=== PATIENT | female | born 1995 | race Caucasian/White ===

== ENCOUNTER 2023-04-14 01:54 | Outpatient (CLI) | payer MEDICAID, SELFPAY ==
[2023-04-14 15:48] LABS: Panorama Kit Sent via Fed Ex
[2023-04-14 15:54] LABS: Abs Immature Grans 0.05 10^3/uL (0.0-0.06); Absolute Basophil Count 0.04 10^3/uL (0.0-0.2); Absolute Eosinophil Count 0.39 10^3/uL (0.0-0.7); Absolute Monocyte Count 0.58 10^3/uL (0.1-0.8); Absolute Neutrophil Count 9.22 10^3/uL (1.2-6.7); Basophils % 0.3; Eosinophils % 3.2; HCT 33.8 % (36.0-46.0); HGB 11.4 g/dL (11.2-15.7); Immature Grans % 0.4; Lymphocytes % 15.6; MCH 29.2 pg (27.0-33.0); MCHC 33.7 % (32.0-36.0); MCV 87 fL (80-95); MPV 12.1 fL (8.0-11.0); Monocytes % 4.8; Neutrophils % 75.7; Platelet Count 203 10^3/uL (130-400); RDW-SD 41.1 fL; WBC 12.18 10^3/uL (4.4-10.8)
[2023-04-14 16:03] LABS: Glucose,1 Hr (Glucola) 133 mg/dL (80-140)
[2023-04-14 16:09] LABS: ALT 19 U/L (14-59); AST 9 U/L (15-37); Albumin 3.1 g/dL (3.4-5.0); Alkaline Phosphatase 55 U/L (46-116); Anion Gap 10.7 mmol/L (3-11); BUN 9 mg/dL (7-18); Bilirubin, Total 0.2 mg/dL (0.2-1.0); CO2 23.3 mmol/L (21.0-32.0); CREATININE 0.8 mg/dL (0.55-1.02); Calcium 8.9 mg/dL (8.5-10.1); Chloride 104 mmol/L (98-107); Glucose 134 mg/dL (74-106); Potassium 3.8 mmol/L (3.5-5.1); Sodium 138 mmol/L (136-145); Total Protein 7.1 g/dL (6.4-8.2)
[2023-04-17 10:41] LABS: Hepatitis B Surface Ag Negative (Negative)
[2023-04-17 10:46] LABS: Varicella IgG Antibody Positive (See Note)
[2023-04-17 10:56] LABS: HIV-1/2 Ag & Ab Screen Negative (Negative)
[2023-04-17 11:07] LABS: Hepatitis C Ab w Rflx HCV PCR Negative (Negative)
[2023-04-17 11:09] LABS: Rubella IgG Ab (UVM) Positive (See Note)
[2023-04-18 21:11] LABS: Syphilis IgG w/Reflex Nonreactive (Nonreactive)
[2023-04-26 17:19] LABS: Result Summary NEGATIVE; Specimen WB Whole Blood
== END 2023-04-14 01:55 | disposition home or self-care (01) ==
LOC: LBO 01:54
PROVIDERS: Visit Provider Advanced Practice Midwife
DX: O09.291 Supervision of pregnancy with other poor reproductive or obstetric history, first trimester (principal); Z3A.12 12 weeks gestation of pregnancy
CPT/HCPCS: 36415; 80053; 81220; 81222; 82950; 86787; 86803; 86850; 86900; 86901; 87340; 87389; 85025; 86762; 86780

== ENCOUNTER 2023-04-14 16:16 | Outpatient (REF) | payer MEDICAID, SELFPAY ==
--- NOTE | 2023-04-14 13:45 | PAPFT_PTH ---
PATIENT: Edith Porter LOC: [facility] U#:[id number] AGE/SX: 27/F ROOM: RE04/14/[address]: Tamiko Kapadia CNM : 1995 BED: DIS: 04/14/2023 SPEC #: [id number] RECD: 04/14/23 17:28 STATUS: KORINA RETheodora #: [id number] MANDI: 04/14/23 13:[address]: Tamiko Kapadia DEPT: [facility] Cytology RECD BY: Marnie Cadet Tissues: 1 - CX/ENDOCX FOR PAP SMEARS Procedures: PAP THIN PREP/UVM Screening Comments: [id number] (CHLAMYDIA/GC)
[2023-04-14 18:14] LABS: COMMENT (LAB VIEW ONLY) 15.85 mg/dL
[2023-04-14 18:49] LABS: PROTEIN < 6.0 mg/dL
[2023-04-14 19:07] LABS: *AMPHETAMINES SCREEN URINE Negative (Negative); *BARBITURATES SCREEN URINE Negative (Negative); *BENZODIAZEPINES SCREEN URINE Negative (Negative); Cannabinoids THC Negative (Negative); Cocaine Screen,Urine Negative (Negative); METHADONE URINE SCREEN Negative (Negative); OPIATES URINE SCREEN Negative (Negative)
[2023-04-14 19:08] LABS: Tricyclic Antidepressants Negative (Negative)
[2023-04-17 14:00] LABS: Chlamydia Result Negative (Negative); GC Result Negative (Negative)
[2023-04-24 19:14] LABS: Buprenorphine Negative ng/mL (Cutoff: 5.0); Norbuprenorphine Negative ng/mL (Cutoff: 2.5)
== END 2023-04-14 16:17 | disposition home or self-care (01) ==
LOC: LBN 16:16
PROVIDERS: Visit Provider Advanced Practice Midwife
DX: O09.291 Supervision of pregnancy with other poor reproductive or obstetric history, first trimester (principal); Z86.32 Personal history of gestational diabetes; Z12.4 Encounter for screening for malignant neoplasm of cervix; Z3A.12 12 weeks gestation of pregnancy; Z11.3 Encounter for screening for infections with a predominantly sexual mode of transmission; R87.610 Atypical squamous cells of undetermined significance on cytologic smear of cervix (ASC-US)
CPT/HCPCS: 80307; 80348; 87491; 87591; 88142; 82565; 84156; 87086

== ENCOUNTER 2023-06-07 01:11 | Outpatient (CLI) | payer MEDICAID, SELFPAY ==
--- NOTE | 2023-06-07 07:45 | DI.US_ITS ---
Exam(s) US OB 2-3 TRIMESTER EXAM: US OB 2-3 TRIMESTER CLINICAL HISTORY: anatomy,Z34.90. TECHNIQUE: Transabdominal obstetrical ultrasound performed. COMPARISON: US POCUS EXAM from 03/17/2023 FINDINGS: Number of fetuses: One. position: Vertex. Placental grade: 1 Placental location: Anterior no evidence of previa. Cervix: Normal. BIOMETRIC DATA: BPD: 46mm = 19+ 6 weeks HC: 175mm = 20+ 0 weeks AC: 152mm = 20+ 3 weeks FL: 35mm = 20+ 1 weeks Cisterna Magna: 4 mm Cerebellum: 2.0 cm EFW: 366 grms 64% Composite Age: 20+ 3 weeks EDC by US: 22 October 2023 Heart Rate: 130BPM Amniotic fluid : Amount of fluid is within normal limits. ANATOMICAL SURVEY: Four-chambered heart: Unremarkable. LVOT: Unremarkable. RVOT: Unremarkable. Left-sided stomach: Unremarkable. urinary bladder: Unremarkable. Bilateral kidneys: Unremarkable. Three-vessel cord: Unremarkable. Cord insertion: Unremarkable. Posterior fossa:Unremarkable. ventricles: Unremarkable. nose: Unremarkable. lips: Unremarkable. palate: Unremarkable. spine: Unremarkable. Two arms and two legs: Unremarkable. IMPRESSION: 1. Single live intrauterine gestation as above with estimated gestational age of 20 weeks 3 days. 2. Normal anatomic survey. DATA REPOSITORY:
== END 2023-06-07 01:31 ==
LOC: DI 01:11
PROVIDERS: Visit Provider Advanced Practice Midwife
DX: Z34.93 Encounter for supervision of normal pregnancy, unspecified, third trimester (principal)
CPT/HCPCS: 76805

== ENCOUNTER 2023-06-07 14:31 | Outpatient (REF) | payer MEDICAID, SELFPAY | END 2023-06-07 14:32 | disposition home or self-care (01) | LOC: LBN 14:31 | PROVIDERS: Visit Provider Obstetrics & Gynecology | DX: R10.11 Right upper quadrant pain (principal); R82.998 Other abnormal findings in urine | CPT/HCPCS: 87086 ==

== ENCOUNTER → 2023-06-09 00:51 | Outpatient (CLI) | payer MEDICAID, SELFPAY ==
--- NOTE | 2023-06-09 08:30 | DI.US_ITS ---
Exam(s) US RENAL EXAM: US RENAL CLINICAL HISTORY: right flank pain in ,R10.9. TECHNIQUE: Chilel scale, color and spectral Doppler were used. COMPARISON: No exams were available for comparison FINDINGS: Renal size in cm: Right: 10.4 x 6.1 x 5 5 left: 10.9 x 4.6 x 4.8 Echogenicity: Normal Hydronephrosis: No Cyst or mass: No Nephrolithiasis: No Bladder:Normal. Both ureteral jets visualized. Prevoid vol:377 cc Postvoid vol: 0 IMPRESSION: Renal ultrasound. DATA REPOSITORY:
== END ==
PROVIDERS: Visit Provider Advanced Practice Midwife
DX: R10.30 Lower abdominal pain, unspecified (principal); Z34.92 Encounter for supervision of normal pregnancy, unspecified, second trimester
CPT/HCPCS: 76770

== ENCOUNTER 2023-08-03 04:55 | Outpatient (CLI) | payer MEDICAID, SELFPAY ==
[2023-08-03 11:19] LABS: HCT 31.4 % (36.0-46.0); HGB 10.6 g/dL (11.2-15.7); MCH 29.1 pg (27.0-33.0); MCHC 33.8 % (32.0-36.0); MCV 86 fL (80-95); MPV 11.3 fL (8.0-11.0); Platelet Count 230 10^3/uL (130-400); RBC 3.64 10^6/uL (3.93-5.22); RDW 13.1 % (11.7-14.6); RDW-SD 40.7 fL; WBC 13.83 10^3/uL (4.4-10.8)
[2023-08-03 11:27] LABS: Glucose,1 Hr (Glucola) 123 mg/dL (80-140)
== END 2023-08-03 04:56 | disposition home or self-care (01) ==
LOC: LBO 04:55
PROVIDERS: Advanced Practice Midwife; Visit Provider Advanced Practice Midwife
DX: Z34.92 Encounter for supervision of normal pregnancy, unspecified, second trimester (principal)
CPT/HCPCS: 36415; 82950; 85027

== ENCOUNTER 2023-09-14 08:13 | Outpatient (CLI) | payer MEDICAID, SELFPAY ==
--- NOTE | 2023-09-14 | DI.US_ITS ---
Exam(s) US OB JOSUÉ WEIGHT EXAM: US OB JOSUÉ WEIGHT CLINICAL HISTORY: position, exam placental location, bleeding. TECHNIQUE: Transabdominal obstetrical ultrasound performed. COMPARISON: US US OB 2-3 TRIMESTER from 06/07/2023 US US RENAL from 06/09/2023 FINDINGS:: Number of fetuses: One. position: Vertex. Placental location: Anterior no evidence of previa. BIOMETRIC DATA: BPD: 84mm = 34+ 0 weeks HC: 328mm = 37+ 3 weeks, 1 of the measurements appears to be overestimated AC: 316mm = 35+4 weeks FL: 67 mm = 34+3 weeks EFW: 2635 Gms = 70% Composite Age: 35+3 weeks TED: 16 October 2023 Heart Rate: 150BPM Amniotic fluid index: 8.6 cm. Amount of fluid is visually within normal limits. IMPRESSION: size and weight are within the expected range. DATA REPOSITORY:
[2023-09-14 09:19] VITALS: BP 107/61; PULSE 93
[2023-09-14 09:27] VITALS: BP 107/61; PULSE 79; TEMP 36.8
[2023-09-14 10:18] LABS: HCT 31.8 % (36.0-46.0); HGB 10.7 g/dL (11.2-15.7); MCH 27.9 pg (27.0-33.0); MCHC 33.6 % (32.0-36.0); MCV 83 fL (80-95); MPV 11.9 fL (8.0-11.0); Platelet Count 231 10^3/uL (130-400); RBC 3.84 10^6/uL (3.93-5.22); RDW 12.9 % (11.7-14.6); RDW-SD 38.3 fL; WBC 10.67 10^3/uL (4.4-10.8)
[2023-09-14 10:22] VITALS: BP 109/68; PULSE 83; RESP 16; TEMP 36.7
[2023-09-14 12:59] VITALS: BP 105/65; PULSE 86; RESP 16; TEMP 36.8
[2023-09-14] MEDS: metroNIDAZOLE 500 MG TAB PO (14:10)
--- NOTE | 2023-09-14 15:16 | HPE_ITS ---
Date of service: 09/14/23 Time of Service: 15:17 Assessment and Plan Assessment and plan (1) Third trimester bleeding, antepartum: Status: Inactive (2) History of section, low transverse: OB-HPI Labor/Delivery History of Present Illness Reason for Visit: Painless vaginal bleeding at 34w3d EGA Chief Complaint: Vaginal Bleeding , Associated Signs and Symptoms of Vaginal Bleeding: painless vaginal bleeding. History of Present Narrative: Patient called the [facility] earlier today to report onset of vaginal bleeding for approximately 5 hours beginning this morning. Patient described the bleeding as bright red blood noted on her toilet tissue when she used the restroom. She denies any clots but described it as a constant flow. Patient has not experienced this type of bleeding during her prior to today. She denies any sexual activity any physical trauma. She reports good movement no contractions. Informed Consent Informed Consent: Other (Discussed possible transfer to [facility] in the event of increased uterine bleeding) Review of Systems Constitutional Constitutional: Reports system reviewed and no additional complaints, except as documented Genitourinary Genitourinary: Reports as per HPI Musculoskeletal Musculoskeletal: Reports system reviewed and no additional complaints, except as documented Integumentary/Breasts Skin/Breast: Reports system reviewed and no additional complaints, except as documented Psychiatric Psychiatric: Reports system reviewed and no additional complaints, except as documented Comments: Patient reports father remains alive. He has declined further chemotherapy but is receiving radiation. PFSH All Active Problems Acute mastitis of left breast (Acute) Status post bilateral salpingectomy (Acute) Status post repeat low transverse section (Acute) 10/18/2023?female , Aretha Migraine headache with aura (Acute) Depression (Chronic) Asthma (Chronic) Tobacco use (Acute) Medical History Trichomonas infection 34w3d EGA. Rx with Metronidazole. Atypical squamous cells of undetermined significance (ASC-US) on cervical Pap smear History of depression, currently History of pre-eclampsia in prior , currently History of gestational diabetes in prior , currently History of ETOH abuse Surgical History History of section, low transverse RCS with BTL on 10/18/23 Family History Maternal Grandmother Alcohol use disorder Depression Hyperlipidemia Hypertension Mother Alcohol use disorder Depression Hypertension Substance use disorder Father Alcohol use disorder Depression Heart disease Hyperlipidemia Hypertension Substance use disorder Self Alcohol use disorder Asthma Depression Diabetes Gestational Diabetes Paternal Grandmother Alcohol use disorder Dementia Depression Son Asthma Maternal Aunt Cancer cervical cancer Depression Other Adopted Social History Smoking/Tobacco Use Status: Current every day Tobacco Type: e-cigarettes Tobacco: How many years used: 8 Smokeless tobacco user: other (vape) Quit status: considering quitting Smoking risk assessment performed?: Yes Alcohol Intake: former Drug use: Never Adopted: Yes Household members: significant other and children Housing: house Communication Needs: None Education Level: high school Pets and animals: Yes Pets and animals: cat(s) and dog(s) Sexually active: Yes Do you think of yourself as: straight/heterosexual Special chikis needs: No Agree to transfusion: Yes Seatbelt use: always Do you feel safe at home: Yes Do you feel safe in your relationship?: Yes Female Reproductive History Menstrual Duration of menses: 3-5 days control method: none History History 3 Para 2 Hx # Term Pregnancies 2 Multiple births 0 Hx # Pregnancies 0 Ectopic pregnancies 0 AB induced 0 Hx Number of Living Children 2 AB spontaneous 2 Past Pregnancies Del. Date GA/Weeks # Preg Succ Route Wgt Sex Labor Lgth Anesth esia Location [facility] 12/11/13 6 No No 04/13/16 6 No No 05/20/17 40 No Yes 7 lb 6 oz Male 18 [facility], [place] 10/18/23 39 No Yes 7 lb 3 oz Female [facility] Delivery Date: 12/11/13 Last Updated by: Tamiko Kapadia CNM SAB Delivery Date: 04/13/16 Last Updated by: Tamiko Kapadia CNM SAB Delivery Date: 05/20/17 Last Updated by: Cassie Stauffer Arrest @ 5 cm, Cat 2 FHT, Pre-eclampsia dx in labor, GDM diet controlled. Donell: autism, nonverbal Delivery Date: 10/18/23 Last Updated by: Jennifer Prasad MD elective repeat delivery with bilateral tubal sterilization. Aretha Meds Allergies and Home Medications Allergies Allergy/AdvReac Type Severity Reaction Status Date / Time Penicillins Allergy Anaphylaxis Unverified 11/03/23 09:55 pitocin Allergy rash Uncoded 11/03/23 09:55 Home Medications Medication Instructions Recorded Confirmed Type famotidine 20 mg tablet (Pepcid) 20 mg PO BID #60 tabs 02/13/23 10/16/23 Rx prenat.vits,randa,[id number] 1 tab PO DAILY 02/13/23 10/16/23 History albuterol sulfate 90 mcg/actuation 2 inh inhalation Q6H #1 ea 06/15/23 10/16/23 Rx breath activated powder inhaler,sensor (Proair Digihaler) ibuprofen 600 mg tablet 600 mg PO Q6H PRN PRN #60 tabs 10/20/23 Rx Exam Physical Exam Vital signs: Temp Pulse Resp BP 98.2 F 86 16 105/65 09/14/23 12:59 09/14/23 12:59 09/14/23 12:59 09/14/23 12:59 Vital Signs Reviewed: Yes Notable Details: Focal uterine tenderness left lower quadrant question ligamentous discomfor Constitutional Constitutional: no acute distress Detailed Labor and Delivery Exam Dilation: 0 Effacement (%): 10 station: -3 Cervix position: mid Consistency: medium Mena Score: Cervical Points Exam 0 1 2 3 Dilation Closed 1-2cm 3-4 cm 5-6cm Effacement 0-30% 40-50% 60-70% 80% Consistency Firm Medium Soft Station -3 -2 -1,0 +1,+2 Position Posterior Mid Anterior Amniotic Membrane Status: Intact Pooling: Negative ROM Plus: Not Done Contraction Frequency(min): Occasional Contraction Intensity: Mild Fetus A Heart Rate Baseline: 140 Monitor Accelerations: 15 X 15 Monitor Decelerations: None Variability: Moderate (6-25 BPM) Presentation: Cephalic Categories: Category I Est. Weight: 6 lb 9.822 oz HEENT Exam HEENT Exam: Not Done Neck Exam Neck Exam: Normal Chest/Brest/Axilla Exam Chest Exam: Normal Breast Exam Breast Exam: Not Done Respiratory Exam Respiratory Exam: Normal Cardiovascular Exam Cardiovascular Exam: Normal Abdominal Exam Abdominal Exam: Normal Rectal Exam Rectal Exam: Not Done Detailed Exam Comments: Sterile speculum exam: Copious white-yellow malodorous vaginal discharge. No evidence of active bleeding. Cervix without excoriations or contact bleeding. No evidence of dilation on digital exam. Extremities Exam Extremities Exam: Normal Back/Spine/Pelvis Exam Back Exam: Normal Skin Exam Skin Exam: Normal Neurological Exam Neurological Exam: Normal Psychiatric Exam Psychiatric Exam: Normal Results Results Group Beta Strep: Done-Result Unknown (Performed at [facility] exam) Blood Type: A+ Rubella Status: Immune Varicella Immunity: Immune Abnormal Lab Findings: Abnormal Labs 09/14/23 10:05 RBC 3.84 L Hgb 10.7 L Hct 31.8 L MPV 11.9 H 09/14/23 10:30 Vaginal Vaginitis Screen - Final Additional Findings Results: Final vaginitis screen result: Bacterial vaginosis and trichomonas present. Risk Assessment Risk for Shoulder Dystocia Historical/Initial OB: POSITIVE FOR: Pre- BMI>30; NEGATIVE FOR: Pelvic Abnormality, Previous Shoulder Dystocia or Previous Macrosomia Date/Initial: 04/14/21 Risk for Pre-Eclampsia Yes, if one or more: POSTIVE FOR: Hx Pre-E/Gest HTN; NEGATIVE FOR: Chronic HTN, Multiple Gestation, Pre-gestational DM, Renal Disease, Systemic Lupus or APA Syndrome Yes, if 2 or more: POSITIVE FOR: BMI>30 and Mother/Sister w/ Pre-E; NEGATIVE FOR: Nulliparity, Age>= 35 yrs, >10yr btwn pregnancies, ethinicty or Previous IUGR Risk for Post- Hemorrhage Initial: NEGATIVE FOR: Multiple Gestation, Previous PPH, Known Clotting Deficiency, Grand Multiparity or Anticoagulation Risks Reviewed Risks Reviewed Upon Admission: Yes
[2023-09-14 15:58] VITALS: BP 105/62; PULSE 78; RESP 14; TEMP 36.3
[2023-09-14] MEDS: Normal Saline Flush 10 ML SYR IVP (16:02)
== END 2023-09-14 16:35 | disposition home or self-care (01) ==
LOC: BCD 08:14 → OBS 08:59
PROVIDERS: Visit Provider Obstetrics & Gynecology Gynecology
DX: O26.853 Spotting complicating pregnancy, third trimester (principal)
CPT/HCPCS: 36415; 76816; 85027; 86850; 86900; 86901; 59025; 87081; 87480; 87510; 87660; G0378

== ENCOUNTER 2023-10-16 02:50 | Outpatient (CLI) | payer MEDICAID, SELFPAY ==
[2023-10-16 11:16] LABS: Absolute Eosinophil Count 0.16 10^3/uL (0.0-0.7); Absolute Lymphocyte Count 2.54 10^3/uL (1.2-3.4); Absolute Monocyte Count 0.92 10^3/uL (0.1-0.8); Absolute Neutrophil Count 10.85 10^3/uL (1.2-6.7); Basophils % 0.3; Eosinophils % 1.1; HCT 33.7 % (36.0-46.0); Immature Grans % 0.7; Lymphocytes % 17.4; MCH 27.6 pg (27.0-33.0); MCHC 32.6 % (32.0-36.0); MCV 85 fL (80-95); MPV 12.2 fL (8.0-11.0); Monocytes % 6.3; Neutrophils % 74.2; Platelet Count 281 10^3/uL (130-400); RBC 3.99 10^6/uL (3.93-5.22); RDW 14.3 % (11.7-14.6); RDW-SD 43.9 fL; WBC 14.62 10^3/uL (4.4-10.8)
[2023-10-16 11:17] LABS: Absolute Basophil Count 0.04 10^3/uL (0.0-0.2)
== END 2023-10-16 02:51 | disposition home or self-care (01) ==
LOC: LBO 02:51
PROVIDERS: Visit Provider Obstetrics & Gynecology
DX: Z01.818 Encounter for other preprocedural examination (principal)
CPT/HCPCS: 36415; 86850; 86900; 86901; 85025

== ENCOUNTER 2023-10-18 06:00 | Inpatient (IN) | payer MEDICAID, SELFPAY ==
--- NOTE | 2023-10-17 09:56 | HPE_ITS ---
Date of service: 10/17/23 Time of Service: 09:57 Assessment and Plan Assessment and plan (1) History of section, low transverse: Status: Acute Assessment and plan: Scheduled Repeat section with B/L salpingectomy (2) History of depression, currently : Status: Acute (3) History of pre-eclampsia in prior , currently : Status: Acute (4) : Status: Acute OB-HPI Labor/Delivery History of Present Illness Chief Complaint: Scheduled Section , Inidcation for Scheduled C- Section: Previous .. TED Calculator Estimated Delivery Date Method Current WG Current Estimate 10/23/23 LMP (Certain) 39w 1d Other Estimates 10/23/23 Ultrasound #1 39w 1d Comments: Scheduled Repeat section History of Present Expected Delivery Route/Plan TOLAC - CNM, goes by Hector Zaragoza (2nd child together) At 25 wks, pt requests repeat C/S d/t her father's CA dx & short life expectancy - MD care. 08/03/23 see below. BG Specific Issues/Plan 1. Prior C/S, arrest at 5cm, GDM diet controlled & pre-eclampsia, records release signed for op note - Possible RCS 10/18 unless her father dies prior to that - then may consider TOLAC. Father is dying of metastatic lung cancer. - Desires BTL if CS; consent signed 08/17/23 2. opts for cfDNA- WNL, CF negativ, AFP declined, declines SMA 3. Hx GDM diet controlled and BMI; early glucola 133. 08/03/23 28w 128. 4. Urine pro/creat & CMP with initial labs d/t hx Pre-eclampsia; all nml 4a. pt to start low dose ASA @ 12 wks 5. History of PPD, referral to [facility] done 6. ASCUS pap, ? repeat PP____ 8. Hx of migraines 9. Hgb 10.6, unable to reach by phone, discuss iron intake at next visit 10. Covid in 3rd trimester Informed Consent Informed Consent: Sterilization and Other Review of Systems All systems reviewed & are unremarkable except as noted in HPI and below Constitutional Constitutional: Reports system reviewed and no additional complaints, except as documented Eyes Eyes: Reports system reviewed and no additional complaints, except as documented ENT Ears, Nose, Mouth, and Throat: Reports system reviewed and no additional complaints, except as documented Cardiovascular Cardiovascular: Reports system reviewed and no additional complaints, except as documented Respiratory Respiratory: Reports system reviewed and no additional complaints, except as documented Neurologic Neurologic: Reports system reviewed and no additional complaints, except as documented PFSH All Active Problems Trichomonas infection (Acute) 34w3d EGA. Rx with Metronidazole. History of section, low transverse (Acute) Third trimester bleeding, antepartum (Acute) Migraine headache with aura (Acute) Dysuria (Acute) Bilateral hip pain (Acute) Right flank pain (Acute) Atypical squamous cells of undetermined significance (ASC-US) on cervical Pap smear (Acute) History of depression, currently (Acute) History of pre-eclampsia in prior , currently (Acute) History of gestational diabetes in prior , currently (Acute) (Acute) Depression (Chronic) Asthma (Chronic) Tobacco use (Acute) Medical History (Updated 09/14/23 @ 16:58 by Jennifer Prasad MD) History of ETOH abuse Surgical History (Updated 09/14/23 @ 15:38 by Jennifer Prasad MD) delivery delivered Family History Maternal Grandmother Alcohol use disorder Depression Hyperlipidemia Hypertension Mother Alcohol use disorder Depression Hypertension Substance use disorder Father Alcohol use disorder Depression Heart disease Hyperlipidemia Hypertension Substance use disorder Self Alcohol use disorder Asthma Depression Diabetes Gestational Diabetes Paternal Grandmother Alcohol use disorder Dementia Depression Son Asthma Maternal Aunt Cancer cervical cancer Depression Other Adopted Social History Smoking/Tobacco Use Status: Current every day Tobacco: How many years used: 8 Smokeless tobacco user: other (vape) Quit status: considering quitting Smoking risk assessment performed?: Yes Alcohol Intake: former Drug use: Never Adopted: Yes Household members: significant other and children Housing: house Communication Needs: None Education Level: high school Pets and animals: Yes Pets and animals: cat(s) and dog(s) Sexually active: Yes Do you think of yourself as: straight/heterosexual Special chikis needs: No Agree to transfusion: Yes Seatbelt use: always Female Reproductive History Menstrual Duration of menses: 3-5 days control method: none History History 3 Para 1 Hx # Term Pregnancies 1 Multiple births 0 Hx # Pregnancies 0 Ectopic pregnancies 0 AB induced 0 Hx Number of Living Children 1 AB spontaneous 2 Past Pregnancies Del. Date GA/Weeks # Preg Succ Route Wgt Sex Labor Lgth Anesth esia Location Prov Compl 12/11/13 6 No No 04/13/16 6 No No 05/20/17 40 No Yes 7 lb 6 oz Male 18 [place], [place] Delivery Date: 12/11/13 Last Updated by: Tamiko Kapadia CNM SAB Delivery Date: 04/13/16 Last Updated by: Tamiko Kapadia CNM SAB Delivery Date: 05/20/17 Last Updated by: Cassie Stauffer Arrest @ 5 cm, Cat 2 FHT, Pre-eclampsia dx in labor, GDM diet controlled. Donell: autism, nonverbal Meds Allergies and Home Medications Allergies Allergy/AdvReac Type Severity Reaction Status Date / Time Penicillins Allergy Anaphylaxis Unverified 10/13/23 10:56 pitocin Allergy rash Uncoded 10/13/23 10:56 Home Medications Medication Instructions Recorded Confirmed Type famotidine 20 mg tablet (Pepcid) 20 mg PO BID #60 tabs 02/13/23 10/16/23 Rx prenat.vits,randa,xes-[id number]-atabu 1 tab PO DAILY 02/13/23 10/16/23 History aspirin 81 mg tablet,delayed 81 mg PO DAILY #90 tabs 04/14/23 10/16/23 Rx release (Adult Aspirin Regimen) albuterol sulfate 90 mcg/actuation 2 inh inhalation Q6H #1 ea 06/15/23 10/16/23 Rx breath activated powder inhaler,sensor (Proair Digihaler) Exam Constitutional Constitutional: no acute distress Detailed Labor and Delivery Exam Mena Score: Cervical Points Exam 0 1 2 3 Dilation Closed 1-2cm 3-4 cm 5-6cm Effacement 0-30% 40-50% 60-70% 80% Consistency Firm Medium Soft Station -3 -2 -1,0 +1,+2 Position Posterior Mid Anterior HEENT Exam HEENT Exam: Normal Neck Exam Neck Exam: Normal Respiratory Exam Respiratory Exam: Normal Cardiovascular Exam Cardiovascular Exam: Normal Risk Assessment Risk for Shoulder Dystocia Historical/Initial OB: POSITIVE FOR: Pre- BMI>30; NEGATIVE FOR: Pelvic Abnormality, Previous Shoulder Dystocia or Previous Macrosomia Date/Initial: 04/14/21 Risk for Pre-Eclampsia Yes, if one or more: POSTIVE FOR: Hx Pre-E/Gest HTN; NEGATIVE FOR: Chronic HTN, Multiple Gestation, Pre-gestational DM, Renal Disease, Systemic Lupus or APA Syndrome Yes, if 2 or more: POSITIVE FOR: BMI>30 and Mother/Sister w/ Pre-E; NEGATIVE FOR: Nulliparity, Age>= 35 yrs, >10yr btwn pregnancies, ethinicty or Previous IUGR Risk for Post- Hemorrhage Initial: NEGATIVE FOR: Multiple Gestation, Previous PPH, Known Clotting Deficiency, Grand Multiparity or Anticoagulation Risks Reviewed Risks Reviewed Upon Admission: Yes
[2023-10-18] VITALS (19 sets, daily range): BP systolic 93–123; BP diastolic 59–84; PULSE 56–90; RESP 16–98; TEMP 36.4–36.9; O2SAT 18–99; BMI 36.3
[2023-10-18] MEDS: Lactated Ringers 1,000 ML 200 ML IV ×2 (06:15→08:14)
[2023-10-18] MEDS: AZITHROMYCIN 500 MG in Normal Saline 250 ML 250 MG IVPB (06:30)
--- NOTE | 2023-10-18 07:08 | ANES.PREOP_ITS ---
General Info Date of Service Date Performed: 10/18/23 Height: 5 ft 2.99 in Weight: 93 kg Body Mass Index (BMI): 36.3 Surgical Procedure: Operation Date: 10/18/23 07:40 Proposed Procedure Side Surgeon p Section, B/L Salpingectomy Leslie Lucia DO Meds Allergies and Home Medications Allergies Allergy/AdvReac Type Severity Reaction Status Date / Time Penicillins Allergy Anaphylaxis Unverified 10/13/23 10:56 pitocin Allergy rash Uncoded 10/13/23 10:56 Home Medication Medication Instructions Recorded famotidine 20 mg tablet (Pepcid) 20 mg PO BID #60 tabs 02/13/23 prenat.vits,randa,sxb-[id number] 1 tab PO DAILY 02/13/23 aspirin 81 mg tablet,delayed 81 mg PO DAILY #90 tabs 04/14/23 release (Adult Aspirin Regimen) albuterol sulfate 90 mcg/actuation 2 inh inhalation Q6H #1 ea 06/15/23 breath activated powder inhaler,sensor (Proair Digihaler) Current Visit Medications: Current Medications Generic Name Dose Route Start Last Admin Trade Name Freq PRN Reason Stop Dose Admin Citric Acid/Sodium Citrate 30 ml 10/18/23 06:00 Sodium Citrate 30 Ml Cup PO PREOP CARLOS Clindamycin Phosphate/Dextrose 900 mg in 50 mls @ 50 mls/hr 10/18/23 06:00 Cleocin In D5w IVPB 10/18/23 16:00 PREOP CARLOS Azithromycin 500 mg/ Sodium 250 mls @ 250 mls/hr 10/18/23 06:00 10/18/23 06:30 Chloride IVPB 10/18/23 16:00 250 mls/hr PREOP CARLOS Administration Ringer's Solution 1,000 mls @ 200 mls/hr 10/18/23 06:00 10/18/23 06:15 IV 200 mls/hr INFUSION CARLOS Administration IV Miscellaneous Supplies 1 each 10/18/23 06:00 Iv Access IV DIRECTED CARLOS Sodium Chloride 0 ml 10/18/23 06:00 Normal Saline Flush 10 Ml Syr IVP PRN PRN Sodium Chloride 0 ml 10/18/23 18:00 Normal Saline Flush 10 Ml Syr IVP BID CARLOS Sodium Chloride 0 ml 10/18/23 06:00 Normal Saline 10 Ml Vial IJ DIRECTED PRN PFSH Active Problems Active Problems: Problem Status Onset Code Trichomonas infection A59.9 History of section, low transverse Z98.891 Third trimester bleeding, antepartum O46.93 Migraine headache with aura G43.109 Dysuria R30.0 Bilateral hip pain M25.551, M25.552 Right flank pain R10.9 Atypical squamous cells of undetermined significance (ASC-US) on cervical Pap smear R87.610 History of depression, currently O99.891, Z86.59 History of pre-eclampsia in prior , currently O09.299 History of gestational diabetes in prior , currently O09.299, Z86.32 Z34.90 Depression F32.A Asthma J45.909 Tobacco use Z72.0 Medical History Medical History (Updated 09/14/23 @ 16:58 by Jennifer Prasad MD) History of ETOH abuse Surgical History Surgical History (Updated 09/14/23 @ 15:38 by Jennifer Prasad MD) delivery delivered Tobacco Smoking/Tobacco Use Status: Current every day Tobacco Type: e-cigarettes Smokeless tobacco user: other (vape) Passive smoking exposure: Yes Alcohol Alcohol Intake: former Substance Use Substance use: Never Prental History History 3 Para 1 Hx # Term Pregnancies 1 Multiple births 0 Hx # Pregnancies 0 Ectopic pregnancies 0 AB induced 0 Hx Number of Living Children 1 AB spontaneous 2 Past Pregnancies Del. Date GA/Weeks # Preg Succ Route Wgt Sex Labor Lgth Anesth esia Location [facility] [place] 12/11/13 6 No No 04/13/16 6 No No 05/20/17 40 No Yes 3345.244 g Male 18 [place], [place] Delivery Date: 12/11/13 Last Updated by: Tamiko Kapadia CNM SAB Delivery Date: 04/13/16 Last Updated by: Tamiko Kapadia CNM SAB Delivery Date: 05/20/17 Last Updated by: Cassie Stauffer Arrest @ 5 cm, Cat 2 FHT, Pre-eclampsia dx in labor, GDM diet controlled. Donell: autism, nonverbal Vital Signs and Lab Results Vital Signs Most Recent Vital Signs in EMR: Most Recent Vital Signs Temp Pulse Resp BP 36.4 C L 87 16 120/84 10/18/23 05:50 10/18/23 05:50 10/18/23 05:50 10/18/23 05:50 Lab Results Blood Type / Crossmatch: Patient ABO/Rh A Positive 10/16/23 Antibody Screen NEGATIVE 10/16/23 Complete Blood Count: White Blood Count 14.62 10^3/uL (4.4-10.8) H 10/16/23 11:05 Red Blood Count 3.99 10^6/uL (3.93-5.22) 10/16/23 11:05 Hemoglobin 11.0 g/dL (11.2-15.7) L 10/16/23 11:05 Hematocrit 33.7 % (36.0-46.0) L 10/16/23 11:05 Platelet Count 281 10^3/uL (130-400) 10/16/23 11:05 Complete Metabolic Panel: No Data to Display Liver Function Panel: No Data to Display Coagulation Panel: No Data to Display Cardiac Panel: No Data to Display Arterial Blood Gas: No Data to Display Venous Blood Gas: No Data to Display Pancreas Panel: No Data to Display Thyroid Panel: No Data to Display Infectious Disease: No Data to Display Blood Cultures: No Data to Display Toxicology Panel: No Data to Display Panel: No Data to Display Anesthesia Assessment and Plan Anesthesia History Personal History: No History of Anesthesia Complications Family History: No Family History of Anesthesia Complications Exercise Tolerance Exercise Tolerance: Metabolic Equivalents>4 Pertinent Negatives Pertinent Negatives: No Symptoms of GERD, No Major Cardiovascular Symptoms or Complaints and No Major Pulmonary Symptoms or Complaints Cardiac & Pulmonary Exam Cardiac Exam: Normal S1/S2 Heart Sounds Pulmonary Exam: Clear Bilateral Breath Sounds Implantable Cardiac Device Does patient have a Pacemaker or an ICD?: No Airway Exam Known Difficult Airway: No Mallampati Class: 1 Mouth Opening: Normal (> 3cm) Thyromental Distance: Greater than 3 cm Neck Range of Motion: Full ROM Neck Circumference: Normal Teeth Condition: Normal Dentition ASA Classification ASA Score: ASA 2 Emergency Case?: No NPO Status NPO Status: NPO Clears >2 hours, Solids >8 hours Status Status: Confirmed Anesthesia Plan Resuscitation Status: Full Code Anesthesia Technique: Spinal Anesthesia Airway Planned: Natural Airway Pain Management: Intrathecal Analgesia Monitors Used: Standard Monitors
[2023-10-18] MEDS: Sodium Citrate 30 ML CUP PO (07:30)
[2023-10-18] MEDS: CLINDAMYCIN 900 MG/50 ML BAG 50 MG IVPB (07:56)
[2023-10-18] MEDS: Bupivacaine 0.25% Pres-Free 30 ML VIAL (08:15)
--- NOTE | 2023-10-18 08:28 | FALL_PTH ---
PATIENT: Edith Porter LOC: OBS U#:[id number] AGE/SX: 27/F ROOM: OBS.303 RE10/18/[address]: Leslie Lucia DO : 1995 BED: A DIS: 10/20/2023 SPEC #: [id number] RECD: 10/18/23 12:50 STATUS: KORINA REQ #: [id number] MANDI: 10/18/23 08:[address]: Leslie Lucia DEPT: Surgical Specimen RECD BY: Marnie Cadet Tissues: 1 - FALLOPIAN TUBE (STERILIZATION) 2 - FALLOPIAN TUBE (STERILIZATION) Procedures: GROSS AND MICRO LEVEL 2 Comments: [id number]
--- NOTE | 2023-10-18 08:47 | W.PM.OBCSECT ---
Date of service: 10/18/23 Time of Service: 08:48 Operative Note Operative Note Delivery Method: Scheduled and Repeat Previous LT Incision: Yes DATE OF PROCEDURE: 10/18/23 PRE-OP DIAGNOSES: at 39 w 2 days, prior C/S, undesired fertility POST-OP DIAGNOSES: same PROCEDURE: Repeat low-transverse section with bilateral salpingectomy SURGEON: Leslie Lucia Assisting Surgeon: Jennifer Prasad Anesthesia: local and spinal Estimated blood loss (mL): 500 Pathology: other (1. Left fallopian tube 2. Right fallopian tube) Complications: None Patient was transported to: floor Patient's condition: stable Indications: Prior section. Declines trial of labor. Term gestation at 39 weeks and 2 days. Undesired fertility. Findings: Normal-appearing tubes, ovaries, uterus. Normal appendix. Delivery of a viable female infant. Procedure Description: After full informed consent had been obtained, patient was taken the operating suite with an IV running. She is placed in the seated position and spinal anesthesia administered, tested, and found to be adequate. She was then placed in the dorsal supine position with leftward tilt and prepped and draped in the usual sterile fashion including abdominal and vaginal preparation. She had pneumatic compression stockings placed for DVT prophylaxis. She received clindamycin due to penicillin allergy, and Zithromax for surgical site infection prophylaxis. She had a Jade catheter inserted for continuous bladder drainage. A Pfannenstiel skin incision was made through her previous scar and carried down to the underlying fascia. Fascia was nicked in the midline and the fascial incision extended laterally. The rectus muscles were identified in the midline and split. The peritoneum was identified tented up and entered sharply and the peritoneal incision was then extended superiorly and inferiorly. At this point the bladder blade was inserted and the vesicouterine peritoneum identified tented up and meticulously dissected away from the lower uterine segment. A low transverse uterine incision was made in the midline and extended bluntly laterally. There was artificial rupture of membranes for clear fluid. vertex delivered through the incision. There is a nuchal cord x 1 which was easily reduced. Shoulders followed with ease. Three-vessel cord was noted clamped x 2, and cut. The baby was then handed off to the waiting pneumatic tube repairer after appropriate delay in the cord clamping. Cord blood specimen was obtained. The placenta was manually expressed from the uterus and the uterus cleared of all clot and debris. The uterus was then exteriorized and uterine incision closed in a 2 layer closure with 0 Monocryl suture, first layer being running locked, second being imbricating. At this point attention was turned to the fallopian tubes where the left fallopian tube was elevated and cautery transected for removal. A similar procedure was carried out on the right fallopian tube. The pedicles were noted to be hemostatic. The uterus was then returned to the abdomen, abdomen irrigated with copious amounts of normal saline and all pedicles again reinspected and noted to be hemostatic. The fascial incision was closed using 0 Vicryl suture in a running fashion. Subcutaneous tissue reapproximated with 3-0 Vicryl suture in a simple interrupted fashion and the skin edge reapproximated with 4-0 undyed Monocryl in a subcuticular fashion. Steri-Strips and sterile dressing were placed. The uterus was noted to be firm and 3 cm below the umbilicus at the completion of her procedure. Jade catheter was in situ draining clear yellow urine. Patient was taken to the obstetrics unit in stable condition. EBL: 500 mL Fluids: Crystalloid per anesthesia Findings: 1. Delivery of a viable infant with Apgars 8 and 9. Normal-appearing tubes, ovaries, uterus. Pathology: 1. Left fallopian tube 2. Right fallopian tube Complications: None apparent
[2023-10-18] MEDS: Oxytocin/Normal Saline 30 UNIT/500 ML BAG 95 UNITS IV (09:00)
[2023-10-18] MEDS: Lactated Ringers 1,000 ML 120 ML IV (09:00)
[2023-10-18] MEDS: Naloxone 0.4 MG/ML VIAL IVP (10:26)
[2023-10-18] MEDS: Metoclopramide 10 MG/2 ML VIAL IVP (11:22)
[2023-10-18] MEDS: Normal Saline Flush 10 ML SYR IVP ×3 (11:24→19:53)
[2023-10-18] MEDS: Acetaminophen 325 MG TAB 650 MG PO (13:37)
[2023-10-18] MEDS: Ketorolac 30 MG/ML VIAL 15 MG IVP ×2 (13:38→19:52)
--- NOTE | 2023-10-18 15:35 | W.ANESPOSTOP ---
Postoperative Evaluation Date, Time and Location Date Performed: 10/18/23 Time Performed: 12:00 Patient Location: Obstetrics Vital Signs Most Recent Imported Vital Signs: Most Recent Vital Signs Temp Pulse Resp BP Pulse Ox 36.9 C 64 16 93/68 L 98 10/18/23 09:00 10/18/23 12:00 10/18/23 13:00 10/18/23 12:00 10/18/23 12:00 Pain Score Most Recent Pain Score: Most Recent Pain Score Pain Level [Abdomen] 4 10/18/23 13:00 Pain Level 6 10/18/23 13:38 Assessment Mental Status: Awake (Alert & Oriented to Patient Baseline) Airway and Respiratory Function: Patent airway with normal (patient baseline) respiratory exam Cardiovascular Function: Hemodynamically Stable Hydration Status: Adequately Hydrated Nausea & Vomiting: No Nausea or Vomiting Pain: Pain is tolerable per patient Peripheral Nerve Block: Patient did not receive a nerve block
--- NOTE | 2023-10-18 16:14 | W.PM.OBPNV1 ---
Date of service: 10/18/23 Time of Service: 16:14 Assessment and Plan Assessment and plan (1) Status post repeat low transverse section: Status: Acute Assessment and plan: Postop day 0 status post repeat low-transverse section with bilateral salpingectomy. Overall she is doing well. I would anticipate routine and postoperative care. She will have her Jade catheter out either later tonight or tomorrow morning. IV will be saline locked. CBC in the morning. All questions were answered. (2) Status post bilateral salpingectomy: Status: Acute Subjective Subjective Interval history: Patient seen postop day #0 doing well. Ambulating is encouraged. She has good pain control at this point. Vitals are stable. Urine output is appropriate. She is working on breast-feeding. baby status: Doing well and Strong Bonding Observed Exam Physical Exam Vital signs: Temp Pulse Resp BP Pulse Ox 97.7 F 70 16 113/74 98 10/18/23 16:01 10/18/23 16:01 10/18/23 16:01 10/18/23 16:01 10/18/23 16:01
[2023-10-19 02:00] VITALS: BP 121/71; PULSE 60; RESP 18; TEMP 36.8
[2023-10-19] MEDS: Ketorolac 30 MG/ML VIAL 15 MG IVP ×2 (02:12→07:40)
[2023-10-19] MEDS: oxyCODONE 5 mg/Acetaminophen 325 mg TAB PO ×3 (06:07→11:24)
[2023-10-19 06:37] LABS: Abs Immature Grans 0.05 10^3/uL (0.0-0.06); Absolute Lymphocyte Count 3.85 10^3/uL (1.2-3.4); Absolute Monocyte Count 1.34 10^3/uL (0.1-0.8); Basophils % 0.2; Eosinophils % 1.3; HCT 28.3 % (36.0-46.0); HGB 9.2 g/dL (11.2-15.7); Immature Grans % 0.3; Lymphocytes % 22.1; MCH 27.8 pg (27.0-33.0); MCHC 32.5 % (32.0-36.0); MCV 86 fL (80-95); MPV 12.2 fL (8.0-11.0); Monocytes % 7.7; Neutrophils % 68.4; Platelet Count 257 10^3/uL (130-400); RBC 3.31 10^6/uL (3.93-5.22); RDW 14.4 % (11.7-14.6); RDW-SD 44.5 fL
[2023-10-19 06:48] LABS: Absolute Basophil Count 0.03 10^3/uL (0.0-0.2); Absolute Eosinophil Count 0.23 10^3/uL (0.0-0.7)
[2023-10-19 07:05] VITALS: BP 116/77; PULSE 91; RESP 16; TEMP 36.5; O2SAT 99
[2023-10-19] MEDS: Docusate Sodium 100 MG CAP PO (07:41)
[2023-10-19] MEDS: Normal Saline Flush 10 ML SYR IVP (08:24)
[2023-10-19] MEDS: Acetaminophen 325 MG TAB 650 MG PO ×2 (11:24→17:05)
[2023-10-19 12:00] VITALS: BP 118/72; PULSE 64; RESP 17; TEMP 36.9; O2SAT 99
[2023-10-19] MEDS: Ibuprofen 600 MG TAB PO ×2 (13:09→19:33)
[2023-10-19 17:00] VITALS: BP 117/78; PULSE 80; RESP 17; TEMP 36.9; O2SAT 99
--- NOTE | 2023-10-19 17:19 | OBPPV_ITS ---
Date of service: 10/19/23 Time of Service: 17:19 Assessment and Plan Assessment and plan (1) Status post repeat low transverse section: Status: Acute Assessment and plan: POD#1 s/p RCS and BTL - routine course. No particular concerns. Likely D/C home tomorrow. Subjective Subjective Narrative: Pt says she is very tired but doing ok otherwise. She had 1 percocet this am but has used just tylenol and ibuprofen since then. Minimal lochia. Breast- feeding has been a struggle and her nipples are sore but she is working with on this. Eating ok. Exam Physical Exam Vital signs: Temp Pulse Resp BP Pulse Ox 98.4 F 64 17 118/72 99 10/19/23 12:00 10/19/23 12:00 10/19/23 12:00 10/19/23 12:00 10/19/23 12:00 Vital Signs Reviewed: Yes Constitutional Constitutional: no acute distress and cooperative Detailed HEENT Exam Head: Present normocephalic and atraumatic Respiratory Exam Respiratory Exam: Normal Abdominal Exam Abdomen: Tender (mildly) Comments: Incision covered with mepilex dressing - clean and dry Fundal Exam Fundus: Below Umbilicus and Firm Extremities Exam Extremity Exam: negative Calf Tenderness or Edema Detailed Neurological Exam Neurological: Present alert, oriented X3 and CN II-XII intact Results Hemoglobin/Hematocrit: Hgb 9.2 g/dL (11.2-15.7) L 10/19/23 06:28 Hct 28.3 % (36.0-46.0) L 10/19/23 06:28 Abnormal Lab Findings: Abnormal Labs 10/19/23 06:28 WBC 17.40 H RBC 3.31 L Hgb 9.2 L Hct 28.3 L MPV 12.2 H Absolute Neutrophils 11.90 H Absolute Lymphocytes 3.85 H Absolute Monocytes 1.34 H
[2023-10-19 20:20] VITALS: BP 122/74; PULSE 74; RESP 16; TEMP 36.6; O2SAT 99
[2023-10-20] MEDS: Acetaminophen 325 MG TAB 650 MG PO ×3 (01:15→10:47)
[2023-10-20] MEDS: Ibuprofen 600 MG TAB PO ×2 (01:16→07:17)
[2023-10-20 07:40] VITALS: BP 125/81; PULSE 84; RESP 16; TEMP 36.4; O2SAT 99
[2023-10-20] MEDS: Docusate Sodium 100 MG CAP PO (07:45)
--- NOTE | 2023-10-20 11:09 | W.PM.OBDISCH ---
Date of service: 10/20/23 Time of Service: 11:09 DS: Diagnosis Discharge Diagnosis (1) Status post repeat low transverse section: Status: Acute Discharge Plan Disposition Patient Disposition: Home Condition: Improving Discharge Details Reason For Visit: Delivery Admit Date/Time: 10/18/23 06:00 Admit Provider: Leslie Lucia Attending Provider: Leslie Lucia Hospital Course Hospital Course: Pt was admitted the morning of surgery and underwent a rLTCS wih bilateral tubal sterilization. Postop course uncomplicated with pain well controlled with NSAIDs and Percocet. Breast feeding and supplementing daughter at time of discharge. Plan is to have her f/u in the office one week postop for Mepilex dressing removal then 2 weeks for postop mood check. Discharge medications will include Ibuprofen 600mg every 6 hours as needed for pain and Percocet 5/325mg every six hours as needed for severe pain not improved with Ibuprofen. Home Meds and New Rx's Prescriptions: New ibuprofen 600 mg Tablet 600 mg PO Q6H PRN PRNQty: 60 2RF oxycodone-acetaminophen 5-325 mg Tablet 1 tab PO Q6H PRNQty: 10 0RF Continued famotidine [Pepcid] 20 mg tablet 20 mg PO BID Qty: 60 6RF Rx Instructions: use BID prn heartburn Proair Digihaler 90 mcg/actuation aero powdr breath act w/sensor 2 inh inhalation Q6H Qty: 1 1RF Discontinued aspirin [Adult Aspirin Regimen] 81 mg tablet,delayed release (DR/EC) 81 mg PO DAILY Qty: 90 2RF Rx Instructions: one tablet by mouth and then two tablets alternating for duration of No Action prenat.vits,randa,jgi-snjq-anzuh Tablet 1 tab PO DAILY Discharge Instructions Stand Alone Forms: BC Instructions, BC Discharge Instruc Activity:: Activity as Tolerated Equipment/Supplies:: No Equipment Needed Diet:: As Tolerated Discharge Orders Discharge Orders: Discharge Order (Routine); Ordered 10/20/23 Ordered By: Jennifer Prasad OB:DS Summary Summary Delivery Method: Repeat Episiotomy Description: None Laceration Description: None Laceration Extension: N/A complications OB DS: none Contraception Discussed Contraception Discussed: No (s/p bialteral tubal sterilization), Infant Gender-Baby A: Female ([place]) weight: 7 lb 3.875 oz Disposition of Baby A: Home Status at Discharge Functional status at discharge: independent ambulation Overall status at discharge: patient is progressing back to baseline Mental Status: mental status grossly normal Speech and Movement: speech and movement normal Mood: congruent mood Affect: normal affect Time Spent with Patient providing and/or coordinating discharge services: Less than 30 minutes Exam Physical Exam Vital signs: Temp Pulse Resp BP Pulse Ox 97.5 F L 84 16 125/81 99 10/20/23 07:40 10/20/23 07:40 10/20/23 07:40 10/20/23 07:40 10/20/23 07:40 Vital Signs Reviewed: Yes Constitutional Constitutional: no acute distress HEENT Exam HEENT Exam: Normal Neck Exam Neck Exam: Normal Respiratory Exam Respiratory Exam: Normal (Lungs CTA bilaterally) Cardiovascular Exam Cardiovascular Exam: Normal (HRR nl sinus rythym) Abdominal Exam Abdomen: Tender (incision covered with a clean dry Mepilex incision) Fundal Exam Fundus: Below Umbilicus Rectal Exam Rectal Exam: Not Done Extremities Exam Extremity Exam: Normal Back/Spine/Pelvis Exam Back Exam: Normal Skin Exam Skin Exam: Normal Neurological Exam Neurological Exam: Normal Psychiatric Exam Psychiatric Exam: Normal PFSH All Active Problems Status post bilateral salpingectomy (Acute) Status post repeat low transverse section (Acute) 10/18/2023?female infant, Aretha Migraine headache with aura (Acute) Depression (Chronic) Asthma (Chronic) Tobacco use (Acute) Medical History (Updated 10/19/23 @ 17:22 by Maria Luisa Gabriel MD) Trichomonas infection 34w3d EGA. Rx with Metronidazole. Atypical squamous cells of undetermined significance (ASC-US) on cervical Pap smear History of depression, currently History of pre-eclampsia in prior , currently History of gestational diabetes in prior , currently History of ETOH abuse Surgical History (Updated 10/19/23 @ 17:22 by Maria Luisa Gabriel MD) History of section, low transverse RCS with BTL on 10/18/23 Family History Maternal Grandmother Alcohol use disorder Depression Hyperlipidemia Hypertension Mother Alcohol use disorder Depression Hypertension Substance use disorder Father Alcohol use disorder Depression Heart disease Hyperlipidemia Hypertension Substance use disorder Self Alcohol use disorder Asthma Depression Diabetes Gestational Diabetes Paternal Grandmother Alcohol use disorder Dementia Depression Son Asthma Maternal Aunt Cancer cervical cancer Depression Other Adopted Social History Smoking/Tobacco Use Status: Current every day Tobacco Type: e-cigarettes Tobacco: How many years used: 8 Smokeless tobacco user: other (vape) Quit status: considering quitting Smoking risk assessment performed?: Yes Alcohol Intake: former Drug use: Never Adopted: Yes Household members: significant other and children Housing: house Communication Needs: None Education Level: high school Pets and animals: Yes Pets and animals: cat(s) and dog(s) Sexually active: Yes Do you think of yourself as: straight/heterosexual Special chikis needs: No Agree to transfusion: Yes Seatbelt use: always Do you feel safe at home: Yes Do you feel safe in your relationship?: Yes Female Reproductive History Menstrual Duration of menses: 3-5 days control method: none History History 3 Para 2 Hx # Term Pregnancies 2 Multiple births 0 Hx # Pregnancies 0 Ectopic pregnancies 0 AB induced 0 Hx Number of Living Children 2 AB spontaneous 2 Past Pregnancies Del. Date GA/Weeks # Preg Succ Route Wgt Sex Labor Lgth Anesthesia Location [facility] 12/11/13 6 No No 04/13/16 6 No No 05/20/17 40 No Yes 7 lb 6 oz Male 18 [facility], [place] 10/18/23 39 No Yes 7 lb 3 oz Female KJ Delivery Date: 12/11/13 Last Updated by: Tamiko Kapadia CNM SAB Delivery Date: 04/13/16 Last Updated by: Tamiko Kapadia CNM SAB Delivery Date: 05/20/17 Last Updated by: Cassie Stauffer Arrest @ 5 cm, Cat 2 FHT, Pre-eclampsia dx in labor, GDM diet controlled. Donell: autism, nonverbal Delivery Date: 10/18/23 Last Updated by: Jennifer Prasad MD elective repeat delivery with bilateral tubal sterilization. Aretha DS: Data Vitals/I&O Vitals and I&O: Vital Signs Temperature 97.5 F L 10/20/23 07:40 Temperature Source Oral 12/22/23 07:40 Pulse 84 10/20/23 07:40 Pulse Rhythm Regular 10/20/23 07:40 Respiratory Rate 16 10/20/23 07:40 Respiratory Depth Normal 10/19/23 08:19 Blood Pressure 125/81 10/20/23 07:40 Blood Pressure Mean 95 10/20/23 07:40 Pulse Oximetry 99 10/20/23 07:40 Oxygen Delivery Method Room Air 10/18/23 05:50 Oxygen Flow Rate 0 10/18/23 05:50 Pain Level 7 10/20/23 10:47 Intake & Output 10/19/23 10/19/23 10/20/23 11:59 23:59 11:59 Output Total 1200 / 1800 600 / 1800 Balance -1200 / -1800 -600 / -1800 Output: Urine 1200 / 1800 600 / 1800 Other: Urine Color Pale Yellow Urine Appearance Clear
[2023-10-20 11:45] VITALS: BP 122/81; PULSE 78; TEMP 36.4
== END 2023-10-20 13:40 | disposition home or self-care (01) | DRG 784 ==
PROVIDERS: Admitting Provider Obstetrics & Gynecology; Visit Provider Obstetrics & Gynecology
PROC: 10D00Z1 Extraction of Products of Conception, Low, Open Approach (ICD-10-PCS; CPT 59514; principal; 2023-10-18 07:30)
DX: O99.354 Diseases of the nervous system complicating childbirth; Z37.0 Single live birth; O34.211 Maternal care for low transverse scar from previous cesarean delivery; Z30.2 Encounter for sterilization; Z3A.39 39 weeks gestation of pregnancy; N85.8 Other specified noninflammatory disorders of uterus; O99.52 Diseases of the respiratory system complicating childbirth; O99.334 Smoking (tobacco) complicating childbirth; F17.210 Nicotine dependence, cigarettes, uncomplicated; O99.344 Other mental disorders complicating childbirth; F32.A Depression, unspecified; J45.909 Unspecified asthma, uncomplicated; O28.2 Abnormal cytological finding on antenatal screening of mother; G43.909 Migraine, unspecified, not intractable, without status migrainosus
CPT/HCPCS: 59514; 58700; 36415; 85025; 88302; J0456; J1100; J1885; J2310; J2371; J2405; J2765; J3010

== ENCOUNTER 2024-06-17 12:43 | Outpatient (REF) | payer MEDICAID, SELFPAY ==
--- NOTE | 2024-06-17 11:35 | PAPFT_PTH ---
PATIENT: Edith Porter LOC: [facility] U#:[id number] AGE/SX: 28/F ROOM: RE06/17/[address]: Jennifer Prasad : 1995 BED: DIS: 06/17/2024 SPEC #: [id number] RECD: 06/17/24 17:31 STATUS: KORINA REQ #: [id number] MANDI: 06/17/24 11:[address]: Jennifer Prasad DEPT: [facility] Cytology RECD BY: Marnie Cadet ENTERED: 06/17/24 17:32 SP TYPE: PAPFT OTHR DR: Unknown,Unknown Tissues: 1 - CX/ENDOCX FOR PAP SMEARS Procedures: PAP THIN PREP/[facility] Screening HPV DNA PROBE Comments: [id number] (HPV 16 & 18/45)
== END 2024-06-17 12:44 | disposition home or self-care (01) ==
LOC: LBN 12:43
PROVIDERS: Visit Provider Obstetrics & Gynecology Gynecology
DX: Z01.419 Encounter for gynecological examination (general) (routine) without abnormal findings (principal); N94.6 Dysmenorrhea, unspecified
CPT/HCPCS: 88142; 87624